=== PATIENT | female | born 1965 | race Caucasian/White ===

== ENCOUNTER → 2021-01-14 | Outpatient (CLI) | payer OTHER ==
--- NOTE | 2021-01-14 16:26 | KCIC ---
MRI of the lumbar spine without contrast 01/06/2021 CLINICAL HISTORY: Low back pain with left leg weakness. TECHNIQUE: Unenhanced T1-weighted and T2-weighted sagittal and axial and inversion recovery sagittal images of the lumbar spine were obtained. FINDINGS: Mild S-shaped curvature of the thoracolumbar spine is seen. Degenerative signal changes are seen involving all of the disks of the lumbar spine. Degenerative signal changes are seen within the marrow surrounding these discs. Loss of height of the L4-5 and L5-S1 discs is noted. The conus medul estuardo is normal in morphology, position, and signal characteristics. At the L1-2, L2-3 and L3-4 disc spaces there are mild generalized disc bulges. Degenerative changes a re seen involving the facet joints bilaterally. There is mild ligamentum flavum hypertrophy bilateral ly. These findings do not result in significant central spinal canal or neural foraminal stenosis. At the L4-5 disc space there is a mild generalized disc bulge. Superimposed on this disc bulge is a c entral/left paracentral focal disc herniation which extrudes superiorly and laterally to the left. Th e extruded disc fragment measures 2.5 x 1.2 x 0.7 cm in craniocaudal, transverse and AP dimensions. T his extends to the superior L4 level. It results in moderate to severe left lateral central spinal ca nal stenosis throughout the majority of the L4 level and appears to impinge upon the left L4 nerve ro ot within the left lateral aspect of the central spinal canal. No neural foraminal stenosis is seen. At the L5-S1 disc space there is a mild generalized disc bulge. Degenerative changes are seen involvi ng the facet joints bilaterally. There is mild ligament flavum hypertrophy bilaterally. There are sma ll facet joint effusions. These findings do not result in significant central spinal canal or neural foraminal stenosis. IMPRESSION: The changes of degenerative disc disease are seen throughout the lumbar spine. At the L4- 5 disc space a central/left paracentral focal disc herniation is seen which extrudes superiorly and l aterally to the left as a large extruded disc fragment. This results in moderate to severe left later al central spinal canal stenosis throughout the majority of the L4 level and appears to impinge upon the left L4 nerve root within the left lateral aspect of the central spinal canal. Electronically signed by: Jeet Van MD (01/14/2021 4:24 PM) [id number]
== END ==
LOC: KCIC MRI 14:26
PROVIDERS: ATTEND Physical Medicine & Rehabilitation
DX: M51.36 Other intervertebral disc degeneration, lumbar region (principal); M48.061 Spinal stenosis, lumbar region without neurogenic claudication; M47.817 Spondylosis without myelopathy or radiculopathy, lumbosacral region; M25.48 Effusion, other site
CPT/HCPCS: 72148

== ENCOUNTER → 2021-11-27 | Outpatient (CLI) | payer OTHER ==
--- NOTE | 2021-11-27 14:33 | KCIC ---
EXAM: MRI LEFT MIDFOOT-HINDFOOT DATE: 11/27/2021 8:45 AM CLINICAL INDICATION: Reason: RULE OUT ANTERIOR TIBIALIS TENDON RUPTURE / Spl. Instructions: Emery noel 09/2021. / History: Tripped while recovering from recent surgery.Lump/swelling anterior jt line COMPARISON: None. TECHNIQUE: Multiplanar, multisequence MR imaging of the left midfoot-hindfoot was performed without I V contrast. FINDINGS: No ankle joint effusion. No subtalar joint effusion. There is marked thickening of the tibialis anterior tendon to the level of the navicular. Beyond this the tibialis anterior is not well seen given the susceptibility artifact from medial column fixation . There is likely full-thickness or near full-thickness tear in this region. The extensor digitorum longus and extensor hallucis longus tendons appear intact. The peroneus longus and brevis are intact. Trace tenosynovial fluid about the peroneal tendons beyond the lateral malleolus. The flexor digitorum longus, flexor hallucis longus and posterior tibialis te ndon are intact with mild tenosynovitis. Achilles tendon is intact, normal in signal and morphology. Plantar fascia is grossly intact. Grossly normal muscle bulk and signal. Mild thickening and increased signal about the saphenous nerve overlying the medial malleolus. Mild naviculocuneiform edema, degenerative. The lateral ankle ligaments including the ATFL, syndesmotic ligaments and deltoid ligament are grossl y intact. Visualized spring ligament is grossly intact. IMPRESSION: 1. Marked thickening of the tibialis anterior, consistent with background of tendinosis and likely a ssociated full-thickness or near full-thickness tear. The distal most attachment is not visualized gi heidi susceptibility artifact from medial column arthrodesis. 2. Mild tenosynovitis about the peroneal tendons, flexor digitorum longus, flexor hallucis longus an d posterior tibialis tendon. Electronically signed by: Rikki Perez MD (11/27/2021 2:31 PM) [id number]
== END ==
LOC: KCIC MRI 08:29
PROVIDERS: ATTEND Orthopaedic Surgery Foot and Ankle Surgery
DX: S86.212A Strain of muscle(s) and tendon(s) of anterior muscle group at lower leg level, left leg, initial encounter (principal); M19.072 Primary osteoarthritis, left ankle and foot; M25.572 Pain in left ankle and joints of left foot; M65.872 Other synovitis and tenosynovitis, left ankle and foot
CPT/HCPCS: 73721